=== PATIENT | male | born 1980 | race Caucasian/White ===

== ENCOUNTER 2019-11-21 01:16 | Emergency (ER) | payer OTHER, SELFPAY ==
--- NOTE | ~2019-11-21 | CT_ITS ---
EXAMINATION: CT abdomen pelvis w con DATE: 11/21/2019 02:31 INDICATION: Assess between the scrotum and rectum. TECHNIQUE: Computed tomography (CT) of the abdomen and pelvis was performed with 100 mL Omnipaque 350 intravenous contrast. Automated exposure control and iterative reconstruction technique were employe d. The dose-length product was 2514.53 mGy-cm. COMPARISON: None. FINDINGS: The visualized portions of the lung bases are clear without pneumonia or pleural effusion. The heart size is normal. No pericardial effusion. The liver, gallbladder, spleen, pancreas, adrenal glands, and left kidney are normal. There is a 2 mm stone in right kidney. There are scattered divert icula in the colon. There is mild wall thickening of the sigmoid colon. The appendix is not visualize d. There are no pathologically enlarged lymph nodes. There is no free intraperitoneal fluid. There is a 5.5 x 3.4 cm abscess in the perineum between the scrotum and anus. There is mild thoracolumbar spo ndylosis. IMPRESSION: 1. 5.5 x 3.4 cm abscess in the perineum between the scrotum and anus. 2. Mild wall thickening of the sigmoid colon, likely chronic diverticulitis. Reviewed, dictated and finalized at location A.
[2019-11-21 01:19] VITALS: BP 160/86; PULSE 101; RESP 18; TEMP 36.8; O2SAT 99
--- NOTE | 2019-11-21 01:38 | ED.SKABFB ---
HPI - Skin/Abscess/Foreign Bdy General Chief complaint: Skin/Abscess/Foreign Body Stated complaint: abscess in groin Time Seen by Provider: 11/21/19 01:31 History of Present Illness HPI narrative: Patient presents to the ED for 3 days of swelling between his rectum and his scrotum. He has previously shaved in this area but not recently. He gives the pain a 10 out of 10. He cannot sit down. He tried to drain it unsuccessfully. He has never had this before. He has not had any fever or chills. He works in IT. He does not smoke cigarettes, he rarely drinks alcohol, he does not smoke marijuana. Surgeries include appendectomy. He has not been sick recently. complaint: abscess/boil Onset (ago): day(s) Location: genitals Severity: severe Severity scale (1-10): 10 Pain Consistency: constant Relieving factors: none Exacerbating factors: palpation and other (Sitting) Context: none Associated symptoms: denies other symptoms Related Data Allergies Allergy/AdvReac Type Severity Reaction Status Date / Time aspirin Allergy Mild Unknown Verified 11/21/19 01:22 Review of Systems Review of Systems: Narrative: CONSTITUTIONAL: Denies fever, chills, or sweats. EYES: Denies visual changes, redness, or discharge. ENT: Denies rhinorrhea, congestion, sore throat, or otalgia. CARDIOVASCULAR: Denies chest pain, palpitations, or edema. RESPIRATORY: Denies cough or dyspnea. GASTROINTESTINAL: Denies abdominal pain, nausea, vomiting, or diarrhea. GENITOURINARY: Denies dysuria or hematuria. SKIN: Denies rash or itching. MUSCULOSKELETAL: Denies back pain, joint pain, or myalgia. NEUROLOGIC: Denies headache, numbness, or weakness. PSYCHIATRIC: Denies anxiety or depression. : Large swelling between the scrotum and the rectum. [facility] Past Medical History Medical History (Updated 11/21/19 @ 01:40 by Prachi Herman MD) Abscess, perirectal Surgical History Surgical History (Updated 11/21/19 @ 01:40 by Prachi Herman MD) History of appendectomy Social History Social History (Updated 11/21/19 @ 01:41 by Prachi Herman MD) Smoking status: Never smoker Alcohol intake: current Alcohol use details: Rare Exam Narrative: Exam Narrative: GENERAL: Well-appearing, well-nourished, and in no acute distress. HEAD: Normocephalic, atraumatic. EYES: PERRLA and EOMI. ENT: Nares clear, no rhinorrhea or epistaxis. Mucous membranes moist. NECK: Supple. CHEST: Clear to auscultation. No respiratory distress. HEART: Regular rate and rhythm. No murmur heard. Normal peripheral pulses. ABDOMEN: Soft, nontender, nondistended, normal active bowel sounds. EXTREMITIES: Normal range of motion. No edema. SKIN: Warm, dry, no rash. NEURO: No focal deficits. Alert and oriented x3. PSYCH: Normal mood and affect. : 4 inch x 3 inch swelling between the scrotum and the rectum, very tender. Course Vital Signs Vital signs: Vital Signs Temperature 98.2 F 11/21/19 01:19 Pulse Rate 101 H 11/21/19 01:19 Respiratory Rate 18 11/21/19 01:19 Blood Pressure 160/86 H 11/21/19 01:19 Pulse Oximetry 99 11/21/19 01:19 Temperature 98.2 F 11/21/19 01:19 Pulse Rate 101 H 11/21/19 01:19 Respiratory Rate 18 11/21/19 01:19 Blood Pressure 160/86 H 11/21/19 01:19 Pulse Oximetry 99 11/21/19 01:19 Procedures Abscess I/D serene-rectal: Date of Incision: 11/21/19 Time of Incision: 03:56 Side (if applicable): right Local Anesthetic: lidocaine 1% Amount of anesthesia used (mL): 5 Technique: incised with #15 blade and probed loculations Amount of fluid expressed (mL): 20 Irrigation: Yes Packing used?: iodoform I&D Results: Pus Complications: bleeding MDM - Skin/Abscess/Foreign Bdy Differential Diagnosis Differential diagnosis: Likely abscess of skin or subcutaneous tissue Medical Records Attestation: I reviewed the patient's medical records. Lab Data Attestation: I revie
[2019-11-21] MEDS: MORPHINE SULFATE 4 MG/ML INJ IV PUSH (01:43)
[2019-11-21] MEDS: SODIUM CHLORIDE 0.9% IV 1,000 ML 999 ML IV CONT (01:44)
[2019-11-21 01:57] LABS: Basophils Absolute Auto 0.1 K/mm3 (0.0-0.1); Basophils Percent Auto 0.3 % (0.2-1.2); Eosinophils Absolute Auto 0.2 K/mm3 (0-0.3); Eosinophils Percent Auto 1.1 % (0-4.4); Hematocrit 49.4 % (42.0-52.0); Hemoglobin 16.7 g/dL (14.0-18.0); Immature Granulocyte Absolute 0.07 K/mm3 (0.00-0.031); Immature Granulocyte Percent A 0.5 % (0-0.5); Lymphocytes Absolute Auto 2.16 K/mm3 (0.9-3.2); Lymphocytes Percent Auto 14.3 % (18.3-44.2); Mean Corpuscular HGB Conc 33.8 g/dl (32-36); Mean Corpuscular Hemoglobin 31.1 pg (26-34); Mean Platelet Volume 12.8 fl (7.4-10.4); Monocytes Absolute Auto 1.2 K/mm3 (0.1-0.6); Monocytes Percent Auto 7.6 % (2.6-8.5); Neutrophils Absolute Auto 11.5 K/mm3 (1.3-6.7); Neutrophils Percent Auto 76.2 % (45.5-73.1); Platelet Count Result 142 k/mm3 (150-375); Red Blood Count 5.37 M/mm3 (4.6-6.20); Red Cell Distribution Width 12.3 % (11.5-14.5); White Blood Count 15.1 K/mm3 (4.5-10.0)
[2019-11-21 02:05] LABS: Alanine Aminotransferase 21 U/L (4-50); Albumin Level 4.2 g/dL (3.5-5.1); Alkaline Phosphatase 123 U/L (38-126); Aspartate Amino Transferase 15 U/L (17-59); Bilirubin,Total 0.8 mg/dL (0.2-1.3); Blood Urea Nitrogen 13 mg/dL (9-20); Calcium 9.2 mg/dL (8.4-10.2); Carbon Dioxide 26 mmol/L (22-30); Chloride 98 mmol/L (98-107); Estimated CRCL calculation 174 ml/min; Estimated Glomerular Filt Rate > 60; Glucose 317 mg/dL (75-110); Potassium 3.8 mmol/L (3.4-5.0); Sodium 134 mmol/L (137-145)
[2019-11-21 02:06] LABS: Lactic Acid 1.4 mmol/L (0.7-2.1)
--- NOTE | 2019-11-21 03:59 | PC.NURSE ---
Following I & D with packing by Dr Hemran-patients periarea cleaned-4x4/sanitary pad dressing applied---patient tolerated procedure well
[2019-11-21 04:11] VITALS: BP 152/74; PULSE 76; RESP 18; O2SAT 98
== END 2019-11-21 04:14 | disposition home or self-care (01) ==
PROVIDERS: Emergency Provider Emergency Medicine
DX: K61.1 Rectal abscess (principal)
CPT/HCPCS: 36415; 46040; 74177; 80053; 83605; 85025; 87040; 96365; 96375; 99284; J2270; J2543; J7030; Q9967

== ENCOUNTER 2020-02-19 15:25 | Observation (INO) | payer OTHER, SELFPAY ==
--- NOTE | ~2020-02-19 | CT_ITS ---
EXAMINATION: CT pelvis w con DATE: 02/19/2020 16:43 INDICATION: Perineal abscess TECHNIQUE: Computed tomography (CT) of the pelvis was performed with 100 cc Omnipaque 350 intravenous contrast. Automated exposure control and iterative reconstruction technique were employed. Exam dose : 1338.02 mGy-cm total exam DLP. COMPARISON: 11/21/2019 CT abdomen pelvis FINDINGS: There is an approximately 5.6 x 7 cm peripherally enhancing thin walled abscess in the serene neum extending into the posterior lower scrotum. There are bilateral shoddy inguinal lymph nodes. There is mild colonic diverticulosis. No bowel obstruction or bowel wall thickening or pneumoperiton eum is detected. The urinary bladder is unremarkable. IMPRESSION: Perineal/scrotal abscess Reviewed, dictated and finalized at Location [facility]. Reviewed, dictated and finalized at location A. IMPRESSION: Perineal/scrotal abscess
[2020-02-19 15:40] VITALS: BP 137/93; PULSE 123; RESP 22; TEMP 36.8; O2SAT 100
--- NOTE | 2020-02-19 16:13 | ED.WOUNDLAC ---
HPI - Wound/Laceration General Chief Complaint: Wound/Laceration Stated Complaint: LEROY ABCESS Time Seen by Provider: 02/19/20 15:54 History of Present Illness HPI narrative: Patient is a 39-year-old male who presents ER with concerns of perineal abscess. Has had this previously. 3 to 4 days ago he began to have discomfort. On 02/17/2028 patient saw his urologist and was started on doxycycline for possible abscess or infection. Reports that is markedly grown in size over the last 2 days. No fevers or chills or sweats. He does have a lot of pain is worse with movement and palpation. Patient did have some bleeding drainage today. Related Data Home Medications Medication Instructions Recorded Confirmed doxycycline hyclate 100 mg PO BID 02/19/20 02/19/20 Allergies Allergy/AdvReac Type Severity Reaction Status Date / Time aspirin Allergy Mild Unknown Verified 02/19/20 16:02 Review of Systems Review of Systems: All systems reviewed & are unremarkable except as noted in HPI and below Constitutional: Constitutional: Denies chills, Denies fever(s) and Denies weakness Gastrointestinal: Gastrointestinal: Denies abdominal pain, Denies nausea and Denies vomiting Genitourinary: Genitourinary: Denies penile discharge and Denies testicular pain Comments: Swelling edema of scrotum directly adjacent perineal infection. [facility] Past Medical History Medical History (Updated 02/19/20 @ 23:28 by Costa Chavis MD) Diverticulitis Morbid obesity Obstructive sleep apnea on CPAP Perineal abscess (~11/2019) Tobacco abuse Type 2 diabetes mellitus (~02/19/20) Surgical History Surgical History History of appendectomy Family History Family History Grandparent Acute myocardial infarction Diabetes mellitus Hypertension Cerebrovascular accident Social History Social History (Updated 02/19/20 @ 23:16 by Veronique Griffith PA-C) Social History: Surrogate decision maker: Laura Montes, . Code status: Full code. Smoking packs per day: 1 Smoking cigarettes per day: 20.0 Years smoked: 19 Smoking pack-years: 19.00 Smoking status: Current every day smoker Tobacco type: cigarettes Alcohol intake: current Substance use: former Substance use type: marijuana Last use: 1 month ago Additional living arrangements comments: Lives in [place] with his and 2 children. Additional occupation/education comments: Works in IT. Gender identity (if verbalized by the patient): Male Sexual Orientation (if Verbalized by the Patient): Straight or Heterosexual Spiritual care concerns: No Exam Narrative: Exam Narrative: GENERAL: Well-appearing, morbidly obese, and in no acute distress. HEAD: Normocephalic, atraumatic. ENT: Mucous membranes moist. CHEST: Clear to auscultation. No respiratory distress. HEART: Regular rate and rhythm. Normal peripheral pulses. ABDOMEN: Soft, nontender, nondistended. : Significant scrotal edema left greater than right with fullness at the base extending into the perineum where there is a focus where dark blood has drained. EXTREMITIES: Normal range of motion. No edema. SKIN: Warm, dry, no rash. NEURO: Alert and oriented x3. Course Course Emergency Course: Admit to the hospitalist service. Discussed case with urology patient will be started on IV cefepime 2 g. Wound incised and drained. Patient should remain n.p.o. as he may require exam under anesthesia if is determined patient needs further drainage of the abscess. Will add on hgA1C. Vital Signs Vital signs: Vital Signs Temperature 98.3 F 02/19/20 15:40 Pulse Rate 123 H 02/19/20 15:40 Respiratory Rate 22 H 02/19/20 15:40 Blood Pressure 137/93 H 02/19/20 15:40 Pulse Oximetry 100 02/19/20 15:40 Temperature 98.9 F 02/19/20 20:37 Pulse Rate 108 H 02/19/20 20:37 Re
[2020-02-19] MEDS: MORPHINE SULFATE (*CRX) 4 MG/ML INJ IV PUSH (16:21)
[2020-02-19] MEDS: SODIUM CHLORIDE 0.9% IV 1,000 ML 999 ML IV CONT (16:21)
[2020-02-19 16:25] LABS: Basophils Absolute Auto 0.1 K/mm3 (0.0-0.1); Basophils Percent Auto 0.4 % (0.2-1.2); Eosinophils Absolute Auto 0.1 K/mm3 (0-0.3); Eosinophils Percent Auto 0.6 % (0-4.4); Hematocrit 51.1 % (42.0-52.0); Hemoglobin 17.4 g/dL (14.0-18.0); Immature Granulocyte Percent A 0.6 % (0-0.5); Lymphocytes Absolute Auto 1.65 K/mm3 (0.9-3.2); Lymphocytes Percent Auto 10.6 % (18.3-44.2); Mean Corpuscular HGB Conc 34.1 g/dl (32-36); Mean Corpuscular Hemoglobin 31.1 pg (26-34); Mean Corpuscular Volume 91.3 fl (80-100); Mean Platelet Volume 12.7 fl (7.4-10.4); Monocytes Absolute Auto 0.9 K/mm3 (0.1-0.6); Neutrophils Absolute Auto 12.8 K/mm3 (1.3-6.7); Neutrophils Percent Auto 81.8 % (45.5-73.1); Platelet Count Result 139 k/mm3 (150-375); Red Cell Distribution Width 13.1 % (11.5-14.5); White Blood Count 15.6 K/mm3 (4.5-10.0)
[2020-02-19 16:37] LABS: Anion Gap 12 mmol/L (8-16); Blood Urea Nitrogen 10 mg/dL (9-20); Calcium 9.4 mg/dL (8.4-10.2); Carbon Dioxide 28 mmol/L (22-30); Chloride 97 mmol/L (98-107); Estimated CRCL calculation 194 ml/min; Estimated Glomerular Filt Rate > 60; Glucose 215 mg/dL (75-110); Lactic Acid Reflex 1.3 mmol/L (0.7-2.1); Potassium 3.8 mmol/L (3.4-5.0); Sodium 137 mmol/L (137-145)
[2020-02-19 16:39] LABS: Estimated CRCL calculation 194 ml/min; Estimated Glomerular Filt Rate > 60
[2020-02-19 18:16] VITALS: BP 155/101; PULSE 98; RESP 18; TEMP 37.2; O2SAT 99
[2020-02-19 19:21] LABS: Hemoglobin A1C 11.3 % (<5.7)
[2020-02-19 19:47] VITALS: BP 130/78; PULSE 108; RESP 18; O2SAT 99
--- NOTE | 2020-02-19 20:25 | ADMGEN ---
This patient, Dell Montes, was admitted to Medical Room 340-01. Patient/family oriented to hospital policies and general routines including ID bracelet, bed and alarms, visiting hours, pain management, procedures, bathroom and other care routines, personal items, smoking policy, room service/diet, and visiting hours. Information on how to activate the Rapid Response Team has been discussed. Patient/Family are encouraged to report perceived risks to care and to ask questions if they do not understand what they are told or what they should do.
[2020-02-19 20:37] VITALS: BP 150/78; PULSE 108; RESP 18; TEMP 37.2; O2SAT 97
[2020-02-19] MEDS: SODIUM CHLORIDE 0.9% IV 1,000 ML 125 ML IV CONT (20:37)
[2020-02-19] MEDS: HYDROcodone/acetaminophen (*CRX) 5-325 MG TABLET 1 TAB PO (20:39)
[2020-02-19 22:00] VITALS: BP 152/76; PULSE 78; RESP 14; TEMP 36.7; O2SAT 98
--- NOTE | 2020-02-19 22:45 | PM.IMHP ---
H&P: HPI History of Present Illness Date/Time: 02/19/20 22:45 Chief complaint: Scrotal/perineal pain. Narrative: Dell Montes is a 39-year-old male with obstructive sleep apnea and history of perineal/scrotal abscesses who presented to the emergency department earlier this afternoon with complaints of scrotal/perineal pain. He began having discomfort in the perineal region about 4 days ago and was seen by his urologist on 02/17/2020 at which time he was prescribed doxycycline for possible abscess. Despite compliance with antibiotics the area has grown in size over the last 2 days with increasing pain, worse with movement and palpation. Today he also knows mild serosanguineous drainage from the area and is status post I&D in the emergency department. Of note, he had similar symptoms with a perineal abscess in November 2019. He denies fever, chills, sweats, nausea, vomiting, or dysuria. No history of MRSA. Review of Systems Review of Systems: Narrative: Twelve systems were reviewed with pertinent positives and negatives as per HPI. no fever, chills, or sweats. No recent cold or flu symptoms. He denies sick contacts. No exposure to those positive for COVID-19. He denies weight loss, blurry vision, polydipsia, polyuria, and neuropathy symptoms. Except as documented, all other systems were reviewed and are negative. [facility] Past Medical History Medical History (Updated 02/19/20 @ 23:16 by Veronique Griffith PA-C) Diverticulitis Morbid obesity Obstructive sleep apnea on CPAP Perineal abscess (~11/2019) Tobacco abuse Type 2 diabetes mellitus (~02/19/20) Surgical History Surgical History History of appendectomy Family History Family History Grandparent Acute myocardial infarction Diabetes mellitus Hypertension Cerebrovascular accident Social History Social History (Updated 02/19/20 @ 23:16 by Veronique Griffith PA-C) Social History: Surrogate decision maker: Laura Montes, . Code status: Full code. Smoking packs per day: 1 Smoking cigarettes per day: 20.0 Years smoked: 19 Smoking pack-years: 19.00 Smoking status: Current every day smoker Tobacco type: cigarettes Alcohol intake: current Substance use: former Substance use type: marijuana Last use: 1 month ago Additional living arrangements comments: Lives in [place] with his and 2 children. Additional occupation/education comments: Works in IT. Gender identity (if verbalized by the patient): Male Sexual Orientation (if Verbalized by the Patient): Straight or Heterosexual Spiritual care concerns: No Meds Home Medications and Allergies Home Medications Medication Instructions Recorded Confirmed Type doxycycline hyclate 100 mg PO BID 02/19/20 02/19/20 History Allergies Allergy/AdvReac Type Severity Reaction Status Date / Time aspirin Allergy Mild Unknown Verified 02/19/20 16:02 Vital Signs Vital Signs - 24 hr 02/19/20 15:40 02/19/20 18:16 02/19/20 19:47 Temperature 98.3 F 99.0 F Pulse Rate 123 H 98 108 H Respiratory Rate 22 H 18 18 Blood Pressure 137/93 H 155/101 H 130/78 Pulse Oximetry 100 99 99 02/19/20 20:37 Temperature 98.9 F Pulse Rate 108 H Respiratory Rate 18 Blood Pressure 150/78 H Pulse Oximetry 97 Exam Narrative: Exam Narrative: General: well-developed male supine distress. Weight: 35 kg. BMI: 42.7. HEENT: PERRL, EOMI. Sclerae anicteric. Oral mucosa moist. Oropharynx crowded. Neck: Supple. No lymphadenopathy. Respiratory: Lungs are clear to auscultation bilaterally. Cardiovascular: Regular rate and rhythm with S1-S2. Gastrointestinal: Abdomen is soft, obese, nontender, and nondistended with positive bowel sounds. Genitourinary: Exam deferred. According to ED physician there is significant scrotal edema, left greater than right, w
[2020-02-20] VITALS: BP 136/78; PULSE 75; RESP 16; TEMP 36.9; O2SAT 98
[2020-02-20] MEDS: INSULIN GLARGINE (*BKC) 100 UNITS/ML 20 UNITS SUB-Q (00:02)
[2020-02-20 00:06] LABS: Glucose Point of Care 267 (65-105)
[2020-02-20] MEDS: MORPHINE SULFATE (*CRX) 4 MG/ML INJ IV PUSH (00:07)
[2020-02-20 04:00] VITALS: TEMP 37
[2020-02-20] MEDS: SODIUM CHLORIDE 0.9% IV 1,000 ML 125 ML IV CONT (04:34)
[2020-02-20 05:14] VITALS: BP 127/80; PULSE 81; RESP 14; TEMP 36.7; O2SAT 99
[2020-02-20] MEDS: HYDROcodone/acetaminophen (*CRX) 5-325 MG TABLET 1 TAB PO (05:22)
[2020-02-20 06:40] LABS: Hematocrit 43.2 % (42.0-52.0); Hemoglobin 14.6 g/dL (14.0-18.0); Mean Corpuscular HGB Conc 33.8 g/dl (32-36); Mean Corpuscular Hemoglobin 31.5 pg (26-34); Mean Corpuscular Volume 93.3 fl (80-100); Platelet Count Result 147 k/mm3 (150-375); Red Blood Count 4.63 M/mm3 (4.6-6.20); Red Cell Distribution Width 13.2 % (11.5-14.5); White Blood Count 11.4 K/mm3 (4.5-10.0)
[2020-02-20 06:45] LABS: Alanine Aminotransferase 13 U/L (4-50); Albumin Level 3.4 g/dL (3.5-5.1); Alkaline Phosphatase 89 U/L (38-126); Anion Gap 8 mmol/L (8-16); Aspartate Amino Transferase 13 U/L (17-59); Bilirubin,Total 0.4 mg/dL (0.2-1.3); Blood Urea Nitrogen 10 mg/dL (9-20); Calcium 8.4 mg/dL (8.4-10.2); Carbon Dioxide 27 mmol/L (22-30); Chloride 101 mmol/L (98-107); Estimated CRCL calculation 169 ml/min; Estimated Glomerular Filt Rate > 60; Glucose 262 mg/dL (75-110); Magnesium 1.9 mg/dL (1.6-2.3); Potassium 3.8 mmol/L (3.4-5.0); Sodium 136 mmol/L (137-145)
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
[2020-02-20 07:38] LABS: Glucose Point of Care 242 (65-105)
[2020-02-20 08:00] VITALS: BP 117/64; PULSE 79; RESP 16; TEMP 36.5; O2SAT 97
[2020-02-20] MEDS: metFORMIN HCL XR 500 MG TAB.SR.24H PO (08:20)
[2020-02-20 11:36] LABS: Glucose Point of Care 183 (65-105)
--- NOTE | 2020-02-20 11:42 | PM.DS ---
DS: Admitting Diagnosis Admitting Diagnosis Admitting Diagnosis: Scrotal/perineal pain. DS: Discharge Diagnosis Discharge Diagnosis (1) Sepsis: Code(s): A41.9 - Sepsis, unspecified organism Status: Acute Assessment and Plan: Present on admission and supported by tachycardia, tachypnea, low-grade fever, and leukocytosis. Suspected source of infection is perineal abscess. He received IV antibiotics and sepsis resolved. preliminary blood cultures showed NGTD and final cultures will be monitored. (2) Perineal abscess: Code(s): L02.215 - Cutaneous abscess of perineum Status: Acute Assessment and Plan: Presented with scrotal edema and pain. Pelvis CT showed perineal/scrotal abscess. Patient has a history of scrotal abscess in November 2019 and is established with urology. He had been on doxycycline for 2 days with no improvement. He was started on IV cefepime per urology recommendations and underwent I&D by the ED physician. The abscess was packed. He was seen in consultation by urology. He was transitioned to p.o. Augmentin which he will continue for 7 days. He will follow-up with his urologist, Dr. Mireles, this week to have his wound checked, or sooner should he develop drainage, purulence, or increased edema/pain. (3) New onset type 2 diabetes mellitus: Code(s): E11.9 - Type 2 diabetes mellitus without complications Status: Acute Assessment and Plan: A1c 11.3. He reports he has never been diagnosed with diabetes before and cannot recall having his A1c checked in the past. Extensive education was provided by myself, nursing staff, and religious educator. He was started on 20 units Lantus nightly and metformin 500 mg b.i.d. He was encouraged to monitor his blood sugars 3 times per day with meals and record. He should bring this log to his PCP for review and medication adjustment as needed. He was educated on proper diet and exercise. He reports he drinks approximately 2L of soda per day and reports he plans to cut this out altogether, which should positively impact his blood sugars. (4) Elevated blood pressure reading: Code(s): R03.0 - Elevated blood-pressure reading, without diagnosis of hypertension Status: Acute Assessment and Plan: Initial blood pressure readings in the ED were elevated up to 160/86 , which may have been due to pain. Readings improved and upon my evaluation, blood pressures were well controlled. BP was 111/55 at time of discharge. (5) Obstructive sleep apnea on CPAP: Code(s): G47.33 - Obstructive sleep apnea (adult) (pediatric); Z99.89 - Dependence on other enabling machines and devices Status: Acute Assessment and Plan: He reports compliance with his CPAP. Continue CPAP nightly. (6) Tobacco abuse: Code(s): Z72.0 - Tobacco use Status: Acute Assessment and Plan: Patient reports smoking 1 pack per day. I counseled him on smoking cessation for 5 minutes. Patient reports that he is interested in quitting smoking eventually but not at this time. Risks of continued tobacco abuse were discussed. Patient verbalized understanding. DS: Summary Hospital Course Reason for hospitalization: Perineal abscess Hospital Course: date of admission: 02/19/2020 date of discharge: 02/20/2020 Dell Montes is a 39-year-old male with a history of DAVID, diverticulitis, tobacco abuse, and recent perineal abscess in November 2019 established with urology who presented to the emergency department on 02/19/2020 with complaints of scrotal discomfort ongoing about 4 days. He had been seen by his urologist on 02/17/2020 and was started on doxycycline at that time. He had been taking his antibiotics but still noticed increased edema and pain in the area. He underwent I&D in the emergency department which yielded serosanguineous discharge. At presentation, he was mildly tachycardic with additional ginger
[2020-02-20 12:00] VITALS: BP 111/55; PULSE 76; RESP 16; TEMP 36; O2SAT 97
--- NOTE | 2020-02-20 12:16 | PCNSR ---
On 02/20/20, the student, Samina Gonzalez, provided care and completed [facility] documentation on this patient. I have reviewed the student's documentation and agree with the findings.
[2020-02-20 12:25] VITALS: BMI 42.7
--- NOTE | 2020-02-20 15:15 | PC.NURSE ---
Per Cayetano,the nurse from the Urologist office, stated pt can go home with the packing and if anything changes she will call him.
== END 2020-02-20 15:05 | disposition home or self-care (01) ==
LOC: ANHED 18:49 → ANH3MED 18:54
PROVIDERS: Physician Assistant; Admitting Provider Internal Medicine; Emergency Provider Emergency Medicine; PCP Family Medicine Sports Medicine; Visit Provider Family Medicine
DX: A41.9 Sepsis, unspecified organism (principal); L02.215 Cutaneous abscess of perineum; N49.2 Inflammatory disorders of scrotum; R03.0 Elevated blood-pressure reading, without diagnosis of hypertension; E11.9 Type 2 diabetes mellitus without complications; G47.33 Obstructive sleep apnea (adult) (pediatric); E66.01 Morbid (severe) obesity due to excess calories; Z68.41 Body mass index [BMI] 40.0-44.9, adult; Z99.89 Dependence on other enabling machines and devices; F17.210 Nicotine dependence, cigarettes, uncomplicated
CPT/HCPCS: 36415; 55100; 72193; 80048; 80053; 83036; 83605; 83735; 85025; 85027; 87040; 96361; 96365; 96375; 99285; A9270; G0378; J0692; J1815; J2270; J7030; Q9967

== ENCOUNTER 2020-07-19 14:00 | Outpatient (RCR) | payer OTHER, SELFPAY ==
[2020-07-19 14:10] VITALS: BMI 80.6
[2020-07-19 14:13] VITALS: BMI 80.6
== END 2020-10-08 14:22 | disposition home or self-care (01) ==
LOC: ANHDMC 14:00
PROVIDERS: PCP Internal Medicine; Visit Provider Internal Medicine
DX: E11.65 Type 2 diabetes mellitus with hyperglycemia (principal); Z71.3 Dietary counseling and surveillance; Z71.89 Other specified counseling
CPT/HCPCS: 97802; G0108

== ENCOUNTER 2021-05-07 12:39 | Outpatient (RCR) | payer OTHER, SELFPAY ==
[2021-05-07] MEDS: ACETAMINOPHEN 325 MG TABLET 650 MG PO (15:28)
[2021-05-07] MEDS: FAMOTIDINE 20 MG TABLET PO (15:28)
[2021-05-07] MEDS: diphenhydrAMINE HCl CAP 25 MG CAPSULE PO (15:28)
[2021-05-07 15:34] VITALS: BP 146/88; PULSE 74; RESP 20; TEMP 36.2; O2SAT 100
[2021-05-07 16:30] VITALS: BP 124/82
== END 2021-05-07 17:00 ==
LOC: AMCINF 12:39
PROVIDERS: PCP Internal Medicine; Referring Provider Internal Medicine; Visit Provider Internal Medicine Hematology & Oncology
DX: U07.1 COVID-19 (principal); I10 Essential (primary) hypertension
CPT/HCPCS: A9270; M0243; Q0244

== ENCOUNTER 2021-08-08 15:30 | Outpatient (RCR) | payer OTHER, SELFPAY ==
--- NOTE | 2021-07-19 16:44 | PTOPEVAL ---
Thank you for referring Dell Montes to [facility].? The patient is scheduled to be seen for therapy? 2 x/week for 4 weeks. Please review, sign, date and return this plan of care JOSÉ ANTONIO. I agree with and certify that the following plan of care is medically necessary. Referring Physician Date Attending Provider: Sacha Quinones APN Diagnosis right elbow pain Onset years Subjective Information He started boweling 4 yrs ago Query Text:As Reported By Patient/ with increased pain regardless Family of weight of ball. He only has pain with end range ext or with bowling. Denies problems with household chore, yard work, work activities at his desk or computer. He wears a compression band and sleeve, ice and topical cream without relief. Diagnostic Tests X-Rays For This Problem Yes Pain Assessment Right Elbow(s) Reported Pain Level 0 Pain Frequency Chronic,Intermittent Lowest Pain Intensity 0 Greatest Pain Intensity 6 Upper Extremity Range of Motion Elbow/Forearm Range of Motion Right Elbow Extension - Active -5 Upper Extremity Muscle Strength Testing General Upper Extremity Strength Gross Upper Extremity Strength Comments 5/5 elbow and wrist pain with wrist flex Muscle Length Testing Muscle Length Testing Latissmus Dorsi Muscle Length (R) Severe Tightness,(L) Severe Tightness Pectoralis Major Muscle Length (R) Mild Tightness,(L) Mild Tightness Pectoralis Minor Muscle Length (R) Severe Tightness,(L) Severe Tightness Posture Standing Position Head/C-Spine Posture Forward Head Thoracic Spine Posture Increased Kyphosis Shoulder Posture (L) Rounded,(R) Rounded,(L) Forward,(R) Forward Scapula Posture (L) Protracted,(R) Protracted, (L) Elevated,(R) Elevated Arm Posture (L) Internally Rotated,(R) Internally Rotated Palpation Assessment Palpation tenderness of ulnar groove for ulnar nerve mild tenderness of distal attachment of tricep muscle Special Tests-Upper Extremity Shoulder Special Tests Upper Limb Tension Test: Radial Negative Right Upper Limb Tension Test:Median Negative Right Upper Limb Tension Test:Ulnar Negative Right Elbow Special Tests Elbow Valgus Stress Test at 0 Degrees Negative Right Extension
--- NOTE | 2021-08-08 16:15 | PCPTNOTE ---
Admitting Provider: Attending Provider: Sacha Quinones APN Patient:Dell Montes Date of :1980 Physical Therapy Discharge Note. Pt referred to therapy due to chronic right elbow pain. He has attended 7 therapy visits from 07/19/21 to 08/08/21 to address his UE impairments. As result of skilled therapy services he reports improved UE symptoms and limitations with bowling. He has been provided a HEP and demonstrates compliance and understanding for performing . He has reached maximal potential with skilled therapy services at this time with goals achieved. Will DC skilled therapy services at this time. Quick Dash: 11% impaired at eval and 0% impaired at update. Thank you for referring this patient to [facility]. Please review, sign, date and return this discharge summary JOSÉ ANTONIO. I have been updated about the patient's current status and I agree with discharge from the above service at this time. Referring Physician Date
== END 2021-10-07 09:29 | disposition home or self-care (01) ==
LOC: ANHPT 15:30
PROVIDERS: PCP Internal Medicine; Visit Provider Nurse Practitioner
DX: M25.521 Pain in right elbow (principal)
CPT/HCPCS: 97035; 97110; 97112; 97140; 97161; 97530

== ENCOUNTER 2021-09-13 05:58 | Emergency (ER) | payer OTHER, SELFPAY ==
--- NOTE | ~2021-09-13 | CT_ITS ---
EXAMINATION: CT abdomen pelvis wo con DATE: 09/13/2021 07:15 INDICATION: Right flank pain TECHNIQUE: Computed tomography (CT) of the abdomen and pelvis was performed without intravenous contr ast. The dose-length product (DLP) was 1326.51 mGy-cm. Automated exposure control and iterative recon struction technique were employed. COMPARISON: 11/21/2019 FINDINGS: Minimal dependent atelectasis is present in the lung bases. The heart size is normal. Bilat eral gynecomastia is noted. The liver, spleen, pancreas, gallbladder, and adrenal glands are normal. There is a 4 mm stone at the right ureterovesicular junction which causes mild right hydroureteroneph rosis. There is enlargement of the right kidney with adjacent fat stranding. The left kidney is unrem arkable. No pathologically enlarged abdominal or pelvic lymph nodes are identified. There is no free intraperitoneal gas or evidence of bowel obstruction. There is mild circumferential wall thickening o f the urinary bladder. Colonic diverticulosis is present without evidence of diverticulitis. IMPRESSION: 1. 4 mm stone at the right ureterovesicular junction causing mild right hydroureteronephrosis. Enlarg ement of the right kidney with surrounding fat stranding could reflect superimposed pyelonephritis. Reviewed, dictated and finalized at location A. IMPRESSION: 1. 4 mm stone at the right ureterovesicular junction causing mild right hydrour eteronephrosis. Enlargement of the right kidney with surrounding fat stranding could reflect superimposed pyelonephritis.
[2021-09-13 05:59] VITALS: BP 147/86; PULSE 73; RESP 18; TEMP 36.6; O2SAT 100
[2021-09-13] MEDS: ONDANSETRON HCL ODT 4 MG TABLET PO (06:48)
[2021-09-13] MEDS: KETOROLAC 30 MG/ML VIAL (*BKC) IM (06:48)
--- NOTE | 2021-09-13 06:51 | ED.BACK ---
HPI - Back Pain/Injury General Chief Complaint: Back Pain/Injury <Sujata Montes MD - Last Filed: 09/13/21 07:35> Stated Complaint: right flank pain <Sujata Montse MD - Last Filed: 09/13/21 07:35> Time Seen by Provider: 09/13/21 06:04 <Sujata Montes MD - Last Filed: 09/13/21 07:35> History of Present Illness HPI Narrative: 40-year-old male woke up from sleep with severe right flank pain that feels like spasms, seems to radiate to the front, with some urinary frequency/dysuria, and nausea. No fevers or chills, no concern for STDs. <Sujata Montes MD - Last Filed: 09/13/21 07:35> Related Data Allergies/Adverse Reactions: Allergies Allergy/AdvReac Type Severity Reaction Status Date / Time aspirin Allergy Mild Vomiting Verified 09/13/21 06:00 <Sujata Montes MD - Last Filed: 09/13/21 07:35> Review of Systems Review of Systems: All systems reviewed & are unremarkable except as noted in HPI and below <Sujata Montes MD - Last Filed: 09/13/21 07:35> PMFSH Past Medical History Medical History: Medical History Diverticulitis Morbid obesity Obstructive sleep apnea on CPAP Perineal abscess (~11/2019) Tobacco abuse Type 2 diabetes mellitus (~02/19/20) <Sujata Montes MD - Last Filed: 09/13/21 07:35> Surgical History Surgical History: Surgical History History of appendectomy <Sujata Montes MD - Last Filed: 09/13/21 07:35> Family History Family History: Family History Grandparent Acute myocardial infarction Diabetes mellitus Hypertension Cerebrovascular accident <Sujata Montes MD - Last Filed: 09/13/21 07:35> Social History Social History: Social History Social History: Surrogate decision maker: Laura Montes, . Code status: Full code. Smoking packs per day: 1 Smoking cigarettes per day: 20.0 Years smoked: 19 Smoking pack-years: 19.00 Tobacco type: cigarettes Alcohol intake: current Alcohol use details: Rare Substance use: former Substance use type: marijuana Last use: 1 month ago Additional living arrangements comments: Lives in [place] with his and 2 children. Additional occupation/education comments: Works in IT. Gender identity (if verbalized by the patient): Male Sexual Orientation (if Verbalized by the Patient): Straight or Heterosexual Spiritual care concerns: No <Sujata Montes MD - Last Filed: 09/13/21 07:35> Exam Narrative: EXAMINATION OF ORGAN SYSTEMS/BODY AREAS: Constitutional: Vital signs per nursing GENERAL: Appears uncomfortable in bed HEAD: Normal with no signs of head trauma. EYES: EOMI, conjunctiva normal ENT: Hearing grossly intact LUNGS: Nonlabored breathing. HEART: [Regular rate and rhythm] ABD: [Soft], no CVAT or abdominal tenderness EXT: Normal range of motion SKIN: [No rashes or lesions.] NEURO: [Alert and oriented x 3. No gross focal sensory or strength deficits.] PSYCH: Normal affect <Sujata Montes MD - Last Filed: 09/13/21 07:35> Course Course Emergency Course: 40-year-old male presenting with right flank pain with nausea, sudden onset with dysuria, vital signs stable, exam shows uncomfortable appearing patient with soft and nontender abdomen and no CVA tenderness, differential includes kidney stones, pyelonephritis, muscle spasm, very unlikely dissection without neuro deficits or risk factors. UA obtained and CT non-con, signed out to oncoming ER physician Dr. Chavis. <Sujata Montes MD - Last Filed: 09/13/21 07:35> Reevaluation(s) Reevaluation #1: Urine with very few white cells and leukocyte Estrace. Will send for culture and start on cephalexin given stranding around the kidney but patient has no CVA tenderness and is afebrile. Stranding felt to be related to hydrouret
[2021-09-13 07:07] LABS: Appearance Urine Clear (Clear); Bilirubin Urine Negative (Negative); Blood Urine 1+ (Negative); Color Urine Yellow (Yellow); Glucose Urine UA Negative (Negative); Ketones Urine Negative (Negative); Leukocyte Esterase Ur 1+ LEU/UL (Negative); Nitrate Urine Negative (Negative); Protein Urine Negative (Negative); Urobilinogen Urine 0.2 mg/dL (<2.0)
[2021-09-13 07:23] LABS: Add Urine Microscopic? YES
[2021-09-13 07:26] LABS: Bacteria Urine Trace /hpf; Mucus Urine Rare /lpf; RBC Urine 21-50 /hpf (0-2); Squamous Epithelial Cell Urine Rare /hpf (Few)
[2021-09-13 07:53] VITALS: BP 158/89; PULSE 73; RESP 18; O2SAT 97
[2021-09-13] MEDS: CEPHALEXIN 500 MG CAPSULE PO (08:55)
[2021-09-13 08:57] VITALS: BP 162/72; PULSE 80; RESP 16; O2SAT 97
== END 2021-09-13 08:59 | disposition home or self-care (01) ==
PROVIDERS: Emergency Medicine; Emergency Provider Emergency Medicine; PCP Internal Medicine
DX: N13.2 Hydronephrosis with renal and ureteral calculous obstruction (principal); E66.01 Morbid (severe) obesity due to excess calories; Z68.35 Body mass index [BMI] 35.0-35.9, adult; G47.33 Obstructive sleep apnea (adult) (pediatric); E11.9 Type 2 diabetes mellitus without complications; F17.210 Nicotine dependence, cigarettes, uncomplicated; Z79.84 Long term (current) use of oral hypoglycemic drugs
CPT/HCPCS: 74176; 81001; 87077; 87086; 87186; 96372; 99284; A9270; J1885

== ENCOUNTER 2021-09-30 16:29 | Emergency (ER) | payer OTHER, SELFPAY ==
[2021-09-30 16:38] VITALS: BP 151/85; PULSE 96; RESP 18; TEMP 37; O2SAT 100
--- NOTE | 2021-09-30 16:46 | ED.URI ---
HPI - URI/Sore Throat General Chief Complaint: Upper Respiratory Infection Stated Complaint: sorethroat,rt ear pain Time Seen by Provider: 09/30/21 16:46 Source: patient Mode of arrival: ambulatory Limitations: no limitations History of Present Illness HPI Narrative: 40-year-old male presents with complaint of sore throat, chills, body aches, fever, fatigue since last night. Reports he just got home from a vacation to [place]. States that radiates to right ear. Is taking Tylenol and ibuprofen. All systems reviewed and negative except as noted above. Related Data Allergies Allergy/AdvReac Type Severity Reaction Status Date / Time aspirin Allergy Mild Vomiting Verified 09/30/21 16:31 Review of Systems Review of Systems: CONSTITUTIONAL: Reports fever, chills, or sweats. EYES: Denies visual changes, redness, or discharge. ENT: Denies rhinorrhea, congestion. Reports sore throat and right ear pain CARDIOVASCULAR: Denies chest pain, palpitations, or edema. RESPIRATORY: Denies cough or dyspnea. GASTROINTESTINAL: Denies abdominal pain, nausea, vomiting, or diarrhea. GENITOURINARY: Denies dysuria or hematuria. SKIN: Denies rash or itching. MUSCULOSKELETAL: Denies back pain, joint pain, or myalgia. NEUROLOGIC: Denies headache, numbness, or weakness. PSYCHIATRIC: Denies anxiety or depression. All other systems reviewed are negative, except as documented in HPI. [facility] Past Medical History Medical History Diverticulitis Morbid obesity Obstructive sleep apnea on CPAP Perineal abscess (~11/2019) Tobacco abuse Type 2 diabetes mellitus (~02/19/20) Surgical History Surgical History History of appendectomy Family History Family History Grandparent Acute myocardial infarction Diabetes mellitus Hypertension Cerebrovascular accident Social History Social History Social History: Surrogate decision maker: Laura Montes, . Code status: Full code. Smoking packs per day: 1 Smoking cigarettes per day: 20.0 Years smoked: 19 Smoking pack-years: 19.00 Tobacco type: cigarettes Alcohol intake: current Alcohol use details: Rare Substance use: former Substance use type: marijuana Last use: 1 month ago Additional living arrangements comments: Lives in [place] with his and 2 children. Additional occupation/education comments: Works in IT. Gender identity (if verbalized by the patient): Male Sexual Orientation (if Verbalized by the Patient): Straight or Heterosexual Spiritual care concerns: No Comments At time of signature, agree with nursing past medical, surgical, social and family history. There is no relevant family history pertinent to the presenting complaint. Exam Narrative: GENERAL: This is a well-nourished, well-developed patient, in no apparent distress. HEAD: normocephalic, atraumatic. EYES: PERRL. Sclera clear/white. Vision is grossly intact. EARS: External ears normal, auditory canals clear and without drainage, TMs normal without perforation. Hearing grossly intact. NOSE: External nose normal with no obvious nasal discharge, nares without redness, no rhinorrhea. THROAT: Mucous membranes moist, erythema and swelling to posterior pharynx, tonsils 1+ with erythema and exudates. NECK: Neck supple, tender enlarged cervical lymphadenopathy. CARDIOVASCULAR: Regular rate and rhythm without murmurs, gallops, or rubs. RESPIRATORY: Clear to auscultation. Breath sounds equal bilaterally. No wheezes, rales, or rhonchi. SKIN: warm, Dry, intact with no suspicious lesions or rash, good texture and turgor. NEURO: awake, alert, and oriented to person, place and time. There were no obvious focal neurologic abnormalities. EXTREMITIES: Normal range of motion to all extremities. [facility]
== END 2021-09-30 17:07 | disposition home or self-care (01) ==
PROVIDERS: Emergency Provider Nurse Practitioner Family; PCP Internal Medicine
DX: J02.9 Acute pharyngitis, unspecified (principal); Z20.822 Contact with and (suspected) exposure to COVID-19; Z87.891 Personal history of nicotine dependence; G47.33 Obstructive sleep apnea (adult) (pediatric); E11.9 Type 2 diabetes mellitus without complications; E66.01 Morbid (severe) obesity due to excess calories; Z68.34 Body mass index [BMI] 34.0-34.9, adult
CPT/HCPCS: 87081; 87426; 87804; 87880; 99213; C9803; G0463

== ENCOUNTER 2021-10-29 14:50 | Emergency (ER) | payer OTHER, SELFPAY ==
[2021-10-29 14:59] VITALS: BP 159/84; PULSE 98; RESP 18; TEMP 38.2; O2SAT 99
--- NOTE | 2021-10-29 15:03 | ED.URI ---
HPI - URI/Sore Throat General Chief Complaint: Upper Respiratory Infection Stated Complaint: Lt Ear Irritation,Sinus,Sore Throat Time Seen by Provider: 10/29/21 15:03 Source: patient, RN notes reviewed and old records reviewed Mode of arrival: ambulatory Limitations: no limitations History of Present Illness HPI Narrative: 40 year old male presents to [facility] care with complaints of sore throat, sinus congestion and left ear irritation for since Thursday evening. Patient reports that his left ear is painful and feels swollen. He reports that he has had sinus congestion with sore throat and some nausea with no emesis. Patient reports that he has taken Motrin, Tylenol and used Apple Cigar vinegar and water. Patient reports that he was treated at clinic one month ago for pharyngitis and ear pain with sinus congestion and felt better for about one week after completing antibiotic, his PCP also ordered him an antibiotic on the which he finished and now symptoms are back again. MD elicited complaint: fever, sore throat, rhinorrhea, nasal congestion and other (ear pain) Pain scale (0-10): 7 Exacerbating factors: swallowing Related Data Home Medications Medication Instructions Recorded Confirmed metformin 1,000 mg tablet 1,000 mg PO BID 10/29/21 Allergies Allergy/AdvReac Type Severity Reaction Status Date / Time aspirin AdvReac Mild Vomiting Verified 10/29/21 15:10 Review of Systems Review of Systems: CONSTITUTIONAL: Positive for fever, chills, or sweats. EYES: Denies visual changes, redness, or discharge. ENT: Positive for rhinorrhea, congestion, sore throat, left otalgia. CARDIOVASCULAR: Denies chest pain, palpitations, or edema. RESPIRATORY: Denies cough or dyspnea. GASTROINTESTINAL: Denies abdominal pain, nausea, vomiting, or diarrhea. GENITOURINARY: Denies dysuria or hematuria. SKIN: Denies rash or itching. MUSCULOSKELETAL: Denies back pain, joint pain, or myalgia. NEUROLOGIC: Denies headache, numbness, or weakness. PSYCHIATRIC: Denies anxiety or depression. [facility] Past Medical History Medical History (Updated 10/29/21 @ 15:41 by Ida Marie NP) Diverticulitis Obesity Obstructive sleep apnea on CPAP Perineal abscess (~11/2019) Tobacco abuse Type 2 diabetes mellitus (~02/19/20) Surgical History Surgical History History of appendectomy Family History Family History Grandparent Acute myocardial infarction Diabetes mellitus Hypertension Cerebrovascular accident Social History Social History Social History: Surrogate decision maker: Laura Montes, . Code status: Full code. Smoking packs per day: 1 Smoking cigarettes per day: 20.0 Years smoked: 19 Smoking pack-years: 19.00 Tobacco type: cigarettes Alcohol intake: current Alcohol use details: Rare Substance use: former Substance use type: marijuana Last use: 1 month ago Additional living arrangements comments: Lives in [place] with his and 2 children. Additional occupation/education comments: Works in IT. Gender identity (if verbalized by the patient): Male Sexual Orientation (if Verbalized by the Patient): Straight or Heterosexual Spiritual care concerns: No Comments At time of signature, agree with nursing past medical, surgical, social and family history. There is no relevant family history pertinent to the presenting complaint Exam Narrative: GENERAL:Ill-appearing, well-nourished, and in no acute distress. HEAD: Normocephalic, atraumatic. EYES: PERRLA and EOMI. ENT: Nares with inflamed membranes clear nasal rhinorrhea no epistaxis. Mucous membranes moist.TMnormal on right with good light reflex, Left TM red and bulging with no drainage, throat red, no lesions or exudates, tonsils red and swollen. NECK: Supple.lymphadenopathy CHEST:
== END 2021-10-29 15:32 | disposition home or self-care (01) ==
PROVIDERS: Emergency Provider Registered Nurse; PCP Internal Medicine
DX: J02.0 Streptococcal pharyngitis (principal); H66.92 Otitis media, unspecified, left ear; F17.210 Nicotine dependence, cigarettes, uncomplicated; G47.33 Obstructive sleep apnea (adult) (pediatric); E11.9 Type 2 diabetes mellitus without complications; E66.9 Obesity, unspecified; Z68.34 Body mass index [BMI] 34.0-34.9, adult; Z79.84 Long term (current) use of oral hypoglycemic drugs
CPT/HCPCS: 87880; 99213; G0463

== ENCOUNTER 2022-08-23 08:19 | Emergency (ER) | payer OTHER, SELFPAY ==
--- NOTE | 2022-08-23 08:27 | ED.GENADULT ---
HPI - General Adult General Chief complaint: Ear Stated complaint: Rt Ear Irritation Time Seen by Provider: 08/23/22 08:27 Source: patient Mode of arrival: ambulatory Limitations: no limitations History of Present Illness HPI narrative: 41-year-old male patient presents to the [facility] with complaints of right ear pain that started . Patient states he woke up with an earache that morning but is become progressively worse. Patient denies any fevers, body aches or chills. Denies any sneezing, the runny nose or watery eyes. Patient states he does take Zyrtec daily. Related Data Allergies Allergy/AdvReac Type Severity Reaction Status Date / Time aspirin AdvReac Intermediate Vomiting Verified 08/23/22 08:30 Review of Systems Review of Systems: CONSTITUTIONAL: Denies fever, chills, or sweats. EYES: Denies visual changes, redness, or discharge. ENT: Denies rhinorrhea, congestion, sore throat, Positive right otalgia. CARDIOVASCULAR: Denies chest pain, palpitations, or edema. RESPIRATORY: Denies cough or dyspnea. GASTROINTESTINAL: Denies abdominal pain, nausea, vomiting, or diarrhea. GENITOURINARY: Denies dysuria or hematuria. SKIN: Denies rash or itching. MUSCULOSKELETAL: Denies back pain, joint pain, or myalgia. NEUROLOGIC: Denies headache, numbness, or weakness. PSYCHIATRIC: Denies anxiety or depression. [facility] Past Medical History Medical History Diverticulitis Obesity Obstructive sleep apnea on CPAP Perineal abscess (~11/2019) Tobacco abuse Type 2 diabetes mellitus (~02/19/20) Surgical History Surgical History History of appendectomy Family History Family History Grandparent Acute myocardial infarction Diabetes mellitus Hypertension Cerebrovascular accident Social History Social History Social History: Surrogate decision maker: Laura Montes, . Code status: Full code. Smoking packs per day: 1 Smoking cigarettes per day: 20.0 Years smoked: 20 Smoking pack-years: 20.00 Smoking status: Current every day smoker Tobacco type: cigarettes Second hand tobacco smoke exposure: Yes Alcohol intake: current Alcohol use details: Rare Substance use: former Substance use type: marijuana Last use: 1 month ago Additional living arrangements comments: Lives in [place] with his and 2 children. Additional occupation/education comments: Works in IT. Gender identity (if verbalized by the patient): Male Sexual Orientation (if Verbalized by the Patient): Straight or Heterosexual Spiritual care concerns: No Comments At the time of my signature I agree with nursing past medical history, surgical, social, and family history. There is no relevant family history pertinent to the presenting complaint. Exam Narrative: GENERAL: Well-appearing, well-nourished, and in no acute distress. HEAD: Normocephalic, atraumatic. EYES: PERRLA and EOMI. ENT: Nares clear, no rhinorrhea or epistaxis. Mucous membranes moist. posterior pharynx no erythema, tonsillar enlargement, exudates or lesions present. The right ear canal is swollen with some yellow drainage present. No infection noted behind the eardrum at this time. NECK: Supple. No lymphadenopathy CHEST: Clear to auscultation. No respiratory distress. HEART: Regular rate and rhythm. No murmur heard. Normal peripheral pulses. ABDOMEN: Soft, nontender, nondistended, normal active bowel sounds. EXTREMITIES: Normal range of motion. No edema. SKIN: Warm, dry, no rash. NEURO: No focal deficits. Alert and oriented x3. Course Course Level of Care: Express Care Visit Vital Signs Vital signs: Vital Signs Temperature 36.6 C 08/23/22 08:37 Pulse Rate 73 08/23/22 08:37 Respiratory Rate 18 08/23/22 08:37 Bl
[2022-08-23 08:37] VITALS: BP 146/86; PULSE 73; RESP 18; TEMP 36.6; O2SAT 100
== END 2022-08-23 08:51 | disposition home or self-care (01) ==
PROVIDERS: Emergency Provider Nurse Practitioner Family; PCP Family Medicine
DX: H60.91 Unspecified otitis externa, right ear (principal); F17.210 Nicotine dependence, cigarettes, uncomplicated; G47.30 Sleep apnea, unspecified; E11.9 Type 2 diabetes mellitus without complications; E66.9 Obesity, unspecified; Z68.35 Body mass index [BMI] 35.0-35.9, adult
CPT/HCPCS: 99213; G0463

== ENCOUNTER 2023-03-13 15:59 | Observation (INO) | payer OTHER, SELFPAY ==
[2023-03-13] VITALS (8 sets, daily range): BP systolic 127–178; BP diastolic 83–106; PULSE 60–75; RESP 14–20; TEMP 36.4–36.6; O2SAT 95–98
--- NOTE | ~2023-03-13 | CT_ITS ---
EXAMINATION: CT brain wo con DATE: 03/13/2023 16:21 INDICATION: Slurred speech. Left arm and leg numbness. TECHNIQUE: Computed tomography (CT) of the head was performed without intravenous contrast. The mA wa s adjusted according to patient size. Iterative reconstruction technique was employed. The dose-lengt h product was 681.00 mGy-cm. COMPARISON: None FINDINGS: There is a 10 mm cyst in the left frontal lobe deep white matter. There is no intracranial hemorrhage, acute infarction, or abnormal intracranial mass lesion. The ventricles are normal in size . There is mild mucosal thickening in the paranasal sinuses. The mastoid air cells are normal. IMPRESSION: 1. 10 mm cyst in the left frontal lobe deep white matter, which may be chronic cystic encephalomalaci a or a prominent perivascular space. I called this result to Dr. Betancur. Reviewed, dictated and finalized at location E. ON FANCIER IMPRESSION: 1. 10 mm cyst in the left frontal lobe deep white matter, which may be chronic cystic encephalomalacia or a prominent perivascular space. I called this result to Dr. Betancur.
--- NOTE | ~2023-03-13 | XR_ITS ---
EXAMINATION: XR chest 1V portable DATE: 03/13/2023 16:31 INDICATION: Left-sided pain and numbness. TECHNIQUE: A single frontal view of the chest was obtained on 2 radiographs. COMPARISON: CT abdomen and pelvis 09/13/2021 FINDINGS: There is no pneumonia, pleural effusion, or pneumothorax. The heart size is normal. IMPRESSION: 1. No acute cardiopulmonary disease. Reviewed, dictated and finalized at location E. GLE SHEARING MACHINE OPERATOR
--- NOTE | ~2023-03-13 | CT_ITS ---
EXAMINATION: CTA brain carotid DATE: 03/13/2023 16:32 INDICATION: Slurred speech. Left arm and leg numbness. TECHNIQUE: Computed tomographic angiography (CTA) of the head was performed with 100 mL Omnipaque-350 intravenous contrast. CTA of the neck was performed with intravenous contrast. Automated exposure co ntrol and iterative reconstruction technique were employed. The dose-length product was 1274.76 mGy-c m. Maximum intensity projection and volume rendered 3D-reconstructions were created by the technologi st on a separate workstation. COMPARISON: Head CT 03/13/2023 FINDINGS: HEAD CTA: There is a cyst in the left frontal lobe ponce radiata. There is no intracranial hemorrhag e, acute infarction, or abnormal intracranial mass lesion. The ventricles are normal in size. The orb its are normal. There is mild mucosal thickening in the paranasal sinuses. The mastoid air cells are normal. The vertebral arteries are codominant. There is no significant stenosis of basilar artery or the posterior cerebral arteries. There is no significant stenosis of the intracranial internal caroti d arteries or anterior or middle cerebral arteries. Anterior communicating artery is normal. The post erior communicating arteries are normal. There is no aneurysm. NECK CTA: There are no pathologically enlarged lymph nodes. There is no significant stenosis of the v ertebral arteries. There is mild plaque in proximal right internal carotid artery. There is 0% stenos is of the proximal right internal carotid artery relative to normal distal artery lumen diameter (FAWN CET criteria). There is 0% stenosis of the proximal left internal carotid artery relative to normal d istal artery lumen diameter. There is mild cervical spondylosis. IMPRESSION: 1. Cyst in the left frontal lobe deep white matter, which may be chronic cystic encephalomalacia or a prominent perivascular space. 2. No aneurysm or significant intracranial arterial stenosis. 3. 0% stenosis of the proximal internal carotid arteries relative to normal distal artery lumen diame ters (NASCET criteria). Reviewed, dictated and finalized at location E. NSTITCH BINDER IMPRESSION: 1. Cyst in the left frontal lobe deep white matter, which may be chronic cystic encephalomalacia or a prominent perivascular space. 2. No aneurysm or significant intracranial arterial stenosis. 3. 0% stenosis of the proximal internal carotid arteries relative to normal dis hipolito artery lumen diameters (NASCET criteria).
--- NOTE | ~2023-03-13 | MR_ITS ---
EXAMINATION: MR brain/brain stem wo/w con DATE: 03/14/2023 15:06 INDICATION: Transient episode of left hemiparesis. TECHNIQUE: Magnetic resonance imaging (MRI) of the brain and brainstem was performed without and with 20 mL MultiHance intravenous contrast. COMPARISON: Head CT 03/13/2023 FINDINGS: There is an old infarct in the left frontal lobe ponce radiata. There are scattered areas of low attenuation in the cerebral white matter, which is within normal limits for the patient's age. There is no intracranial hemorrhage, acute infarction, or abnormal intracranial mass lesion. The ve ntricles are normal in size. The paranasal sinuses are clear. The mastoid air cells are normal. The o rbits are normal. IMPRESSION: 1. Old infarct in the left frontal lobe ponce radiata. Reviewed, dictated and finalized at location E. OGICAL AIDE
--- NOTE | 2023-03-13 16:11 | ECG_ITS ---
Measurements Intervals [place] Rate: 63 P: 26 DC: 147 QRS: 42 QRSD: 94 T: 41 QT: 386 QTc: 397 Interpretive Statements SINUS RHYTHM LOW QRS VOLTAGE IN PRECORDIAL LEADS BASELINE WANDER- V1 BORDERLINE ECG NO PREVIOUS ECG AVAILABLE FOR COMPARISON Electronically Signed On 03-13-2023 19:20:25 COMMERCIAL SALES DIRECTOR by Sathya Sung D.O.
--- NOTE | 2023-03-13 16:16 | ED.NEUROSD ---
HPI - Neuro Symptoms/Deficit General Chief Complaint: Neuro Symptoms/Deficit Stated Complaint: numbness tingling Time Seen by Provider: 03/13/23 16:12 History of Present Illness HPI Narrative: Patient is a 42-year-old male presenting as a stroke alert. Patient states that approximately 30 minutes ago he felt the left side of his body go numb and his thought that his speech sounded slurred. He was brought in for evaluation and states that his left arm and leg still feel somewhat numb but his speech is improved. No focal weakness, vision changes, headache. Related Data Allergies Allergy/AdvReac Type Severity Reaction Status Date / Time No Known Allergies Allergy Verified 03/15/23 11:26 Review of Systems Review of Systems: ROS unobtainable: Yes unobtainable due to medical condition and other (Acuity of the situation) [facility] Past Medical History Medical History (Updated 03/15/23 @ 15:59 by Deepika Betancur MD) Cryptogenic stroke Diet-controlled type 2 diabetes mellitus (02/2020) Diverticulitis Obstructive sleep apnea on CPAP Perineal abscess (11/2019) PFO (patent foramen ovale) Tobacco abuse Surgical History Surgical History History of appendectomy Family History Family History Grandparent Acute myocardial infarction Diabetes mellitus Hypertension Cerebrovascular accident Social History Social History (Updated 03/13/23 @ 22:29 by Veronique Griffith PA-C) Social History: Surrogate decision maker: Laura Montes, . Code status: Full code. Smoking packs per day: 0.25 Smoking cigarettes per day: 5.0 Years smoked: 20 Smoking pack-years: 5.00 Smoking status: Current every day smoker Tobacco type: cigarettes Second hand tobacco smoke exposure: Yes Alcohol intake: current Drinks per week: 1 Alcohol use details: Rare Substance use: current Substance use type: marijuana Last use: 03/12/2023 Lack of Transportation: No Lack of Food: Never True Current Housing: I Have Housing Concerned About Future Housing: No Difficulty Paying Gas/Electric Bills: No Difficulty Paying for Meds: No Currently Unemployed: No Education: Bachelor's Degree Difficulty w/ Childcare or Family Care: No Additional living arrangements comments: Lives in [place] with his and 2 children. Additional occupation/education comments: Works in IT. Spiritual care concerns: No Exam Narrative: GENERAL: Nontoxic, no acute distress HEAD: Normocephalic, atraumatic. EYES: PERRLA and EOMI. ENT: Grossly unremarkable NECK: Supple. CHEST: Clear to auscultation. No respiratory distress. HEART: Regular rate and rhythm ABDOMEN: Soft, nondistended EXTREMITIES: Normal range of motion. No edema. SKIN: Warm, dry, no rash. NEURO: Alert and oriented x3. 5 out of 5 strength in all extremities, reports subjective sensory loss in the left arm and left leg, no facial droop, no dysarthria or aphasia PSYCH: Normal mood and affect. Course Vital Signs Vital signs: Vital Signs Temperature 97.6 F 03/13/23 16:03 Pulse Rate 75 03/13/23 16:03 Respiratory Rate 16 03/13/23 16:03 Blood Pressure 178/106 H 03/13/23 16:03 Pulse Oximetry 96 03/13/23 16:03 Oxygen Delivery Room Air 03/13/23 16:03 Temperature 97.9 F 03/15/23 04:41 Pulse Rate 63 03/15/23 12:00 Respiratory Rate 12 03/15/23 04:41 Blood Pressure 118/70 03/15/23 04:41 Pulse Oximetry 97 03/15/23 04:41 Oxygen Delivery Room Air 03/15/23 10:00 MDM - Neuro Symptoms/Deficit MDM Narrative Medical decision making narrative: 42-year-old male presenting as a stroke alert. NIH of 1 on arrival. Patient is hypertensive, otherwise vitals are within normal limits. Patient immediately taken to CT scan. 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 CTA with 0% stenoses and no aneurysms. On reeval
[2023-03-13 16:20] LABS: Basophils Absolute Auto 0.1 K/mm3 (0.0-0.1); Basophils Percent Auto 0.6 % (0.2-1.2); Eosinophils Absolute Auto 0.2 K/mm3 (0-0.3); Eosinophils Percent Auto 2.1 % (0-4.4); Hematocrit 53.4 % (42.0-52.0); Hemoglobin 17.5 g/dL (14.0-18.0); Immature Granulocyte Absolute 0.04 K/mm3 (0.00-0.031); Immature Granulocyte Percent A 0.4 % (0-0.5); Lymphocytes Absolute Auto 3.42 K/mm3 (0.9-3.2); Lymphocytes Percent Auto 35.1 % (18.3-44.2); Mean Corpuscular HGB Conc 32.8 g/dl (32-36); Mean Corpuscular Hemoglobin 31.1 pg (26-34); Mean Corpuscular Volume 94.8 fl (80-100); Mean Platelet Volume 12.1 fl (7.4-10.4); Monocytes Absolute Auto 0.6 K/mm3 (0.1-0.6); Monocytes Percent Auto 6.2 % (2.6-8.5); Neutrophils Absolute Auto 5.4 K/mm3 (1.3-6.7); Neutrophils Percent Auto 55.6 % (45.5-73.1); Platelet Count Result 162 k/mm3 (150-375); Red Blood Count 5.63 M/mm3 (4.6-6.20); Red Cell Distribution Width 12.6 % (11.5-14.5); White Blood Count 9.7 K/mm3 (4.5-10.0)
[2023-03-13 16:21] LABS: Estimated CRCL calculation 83 ml/min; Estimated Glomerular Filt Rate 56
[2023-03-13 16:24] LABS: Glucose Point of Care 120 mg/dl (65-105)
[2023-03-13 16:31] LABS: Alanine Aminotransferase 33 U/L (6-50); Albumin Level 4.7 g/dL (3.5-5.1); Alkaline Phosphatase 73 U/L (38-126); Anion Gap 13 mmol/L (8-16); Aspartate Amino Transferase 26 U/L (17-59); Bilirubin,Total 0.6 mg/dL (0.2-1.3); Blood Urea Nitrogen 17 mg/dL (9-20); Calcium 9.9 mg/dL (8.4-10.2); Carbon Dioxide 30 mmol/L (22-30); Chloride 100 mmol/L (98-107); Estimated CRCL calculation 89 ml/min; Estimated Glomerular Filt Rate > 60; Glucose 108 mg/dL (65-110); Potassium 4.7 mmol/L (3.4-5.0); Sodium 143 mmol/L (137-145)
[2023-03-13 16:36] LABS: Prothrombin Time 13.5 Seconds (11.1-14.7)
[2023-03-13 16:37] LABS: Partial Thromboplastin Time 25.8 SECONDS (22.3-36.8)
[2023-03-13 16:42] LABS: Troponin I < 0.012 ng/mL (0.000-0.034)
[2023-03-13 17:25] LABS: Appearance Urine Clear (Clear); Bilirubin Urine Negative (Negative); Blood Urine Negative (Negative); Color Urine Yellow (Yellow); Glucose Urine UA Negative (Negative); Ketones Urine Negative (Negative); Leukocyte Esterase Ur Negative LEU/UL (Negative); Nitrate Urine Negative (Negative); Protein Urine Negative (Negative); Specific Grav Ur 1.031 (1.001-1.035); Urobilinogen Urine 0.2 mg/dL (<2.0); pH Urine 6.5 (5.0-9.0)
[2023-03-13 17:30] LABS: Add Urine Microscopic? NO
[2023-03-13 17:46] LABS: Amphetamine Screen Urine Negative (Negative); Barbiturate Screen Urine Negative (Negative); Benzodiazepines Screen Urine Negative (Negative); Cannabinoid Screen Urine Positive (Negative); Cocaine Screen Urine Negative (Negative); Methadone Screen Urine Negative (Negative); Opiate Screen Urine Negative (Negative); Phencyclidine Screen Urine Negative (Negative)
--- NOTE | 2023-03-13 18:32 | PM.IMHP ---
H&P: HPI History of Present Illness Date/Time: 03/13/23 19:00 Chief Complaint: Left sided numbness, facial droop, and slurred speech. Narrative: This is a pleasant 42-year-old male smoker (currently taking Chantix) with diet-controlled type 2 diabetes mellitus and obstructive sleep apnea on CPAP who presented to the emergency department via private vehicle for evaluation of left sided numbness, facial droop, and slurred speech. The patient provides the following history. His provides additional information, with the patient's permission. He was in his usual state of health when he got up today and he and his went to play slots. Suddenly while sitting at a machine he developed heaviness and numbness in his left arm. He stood up to find his to discuss his symptoms at which time he noticed that the left leg seemed to be a bit numb and heavy as well. reports that his speech was difficult to understand and there was some mild left-sided facial drooping. They drove immediately to the ED and he was sent emergently for CTA of the head and neck which showed no significant intracranial arterial stenosis or findings although a cyst in the left frontal lobe deep white matter was noted. Over the next hour or so his symptoms have started to resolve and he is essentially back to normal at the time my evaluation in the ED. He has never had similar symptoms. He has no history of cardiac dysrhythmia and denies palpitations and sensations of racing or irregular heartbeat. He has lost over 100 lb since being diagnosed with diabetes and he has been able to come off of his medications. He states compliance with his CPAP and tells me he cannot sleep without it. He has never had issues with his blood pressures however he notes that they have been running a bit high today since arrival. He denies headache, vertigo, and vision changes. No recent illnesses. No recent vaccinations. He is not on any hormones. He has been off and on Chantix since the spring and is down to about 4 to 5 cigarettes a day. Review of Systems Review of Systems: Twelve systems were reviewed and are negative except for as per HPI. [facility] Past Medical History Medical History (Updated 03/13/23 @ 22:31 by Veronique Griffith PA-C) Diet-controlled type 2 diabetes mellitus (02/2020) Diverticulitis Obstructive sleep apnea on CPAP Perineal abscess (11/2019) Tobacco abuse Surgical History Surgical History History of appendectomy Family History Family History Grandparent Acute myocardial infarction Diabetes mellitus Hypertension Cerebrovascular accident Social History Social History (Updated 03/13/23 @ 22:29 by Veronique Griffith PA-C) Social History: Surrogate decision maker: Laura Montes, . Code status: Full code. Smoking packs per day: 0.25 Smoking cigarettes per day: 5.0 Years smoked: 20 Smoking pack-years: 5.00 Smoking status: Current every day smoker Tobacco type: cigarettes Second hand tobacco smoke exposure: Yes Alcohol intake: current Drinks per week: 1 Alcohol use details: Rare Substance use: current Substance use type: marijuana Last use: 03/12/2023 Lack of Transportation: No Lack of Food: Never True Current Housing: I Have Housing Concerned About Future Housing: No Difficulty Paying Gas/Electric Bills: No Difficulty Paying for Meds: No Currently Unemployed: No Education: Bachelor's Degree Difficulty w/ Childcare or Family Care: No Additional living arrangements comments: Lives in [place] with his and 2 children. Additional occupation/education comments: Works in IT. Spiritual care concerns: No Meds Home Medications and Allergies Home Medications Medication Instructions Recorded Confirmed Type No Home Medications 03/13/23 03/13/23 History Allergies Allerg
[2023-03-13 21:18] LABS: Glucose Point of Care 169 mg/dl (65-105)
[2023-03-14] VITALS (11 sets, daily range): BP systolic 119–125; BP diastolic 72–81; PULSE 56–65; RESP 14–16; TEMP 36.3–36.6; O2SAT 95–99
[2023-03-14 05:23] LABS: Anion Gap 8 mmol/L (8-16); Blood Urea Nitrogen 19 mg/dL (9-20); Calcium 8.9 mg/dL (8.4-10.2); Carbon Dioxide 27 mmol/L (22-30); Chloride 103 mmol/L (98-107); Cholesterol 156 mg/dL (0-200); Estimated CRCL calculation 96 ml/min; Estimated Glomerular Filt Rate > 60; Glucose 118 mg/dL (65-110); HDL Direct 36 mg/dL; Magnesium 2.2 mg/dL (1.6-2.3); Potassium 3.9 mmol/L (3.4-5.0); Sodium 138 mmol/L (137-145); Triglycerides 136 mg/dL (<150)
[2023-03-14 05:33] LABS: LDL Cholesterol Direct 84 mg/dL
[2023-03-14 08:11] LABS: Glucose Point of Care 124 mg/dl (65-105)
--- NOTE | 2023-03-14 10:40 | WPDNEURCNPN ---
Assessment and Plan Assessment and plan (1) Transient ischemic attack: Code(s): G45.9 - Transient cerebral ischemic attack, unspecified Status: Acute (2) Diet-controlled type 2 diabetes mellitus: Onset Date: 02/2020 Code(s): E11.9 - Type 2 diabetes mellitus without complications Status: Acute (3) Tobacco abuse: Code(s): Z72.0 - Tobacco use Status: Acute (4) Hypertension: Code(s): I10 - Essential (primary) hypertension Status: Acute Plan Dell Montes is a 42 year old male with a history of hypertension, prediabetes, chronic smoking, DAVID who presented for evaluation of left sided numbness, facial droop, and slurrying of the speech. He does have several stroke factors despite his younger age, so obviously TIA is a concern. CTA brain/carotid did not show any evidence of intracranial or extracranial stenosis. Also on the differential is focal seizure, and even an initial demyelinating event. - Obtain MRI brain with and without contrast - If MRI is unrevealing, start daily aspirin and statin - goal LDL is <70 in the setting of TIA/stroke - Surface echocardiogram is pending -- if unrevealing, check hypercoagulability labs given family history of early stroke- PT/PTT, Protein C, Protein S, Antithrombin III, Prothrombin gene mutations, Factor V Leiden, Anticardiolipin antibodies (IgG and IgM), lupus anticoagulant, homocysteine, Lipoprotein A, MTHFR, D-dimer, Factor VIII activity - Counselled on importance of smoking cessation Consult date: 03/14/23 Reason for consult: Transient focal neurologic symptoms HPI: Dell Montes is a 42 year old male with a history of hypertension, prediabetes, chronic smoking, DAVID who presented for evaluation of left sided numbness, facial droop, and slurrying of the speech. Patient was at a slot machine on day of presentation when he suddenly developed heaviness and numbness of his left arm. He stood up and then noticed that his left leg seemed numb and heavy as well. His noted that his speech was difficult to understand (slurred and mumbled) and he had left sided facial droop as well. Patient denies any confusion or loss of awareness. The weakness lasted about 5 minutes, but the sensory loss lasted about 30 minutes. He presented to [facility] ED shortly after the onset of his symptoms. He had a CT head that showed no acute changes. CTA brain/carotid with no significant stenosis or occlusion. The CT did show possible cystic encephalomalacia in the L frontal subcortical region. His NIH score was 1 due to sensory changes. His symptoms self-resolved while in the ED. His blood pressure was in the 150-170s systolic. EKG showed sinus rhythm. He currently smokes 4-5 cigarettes per day. Most recent A1c is 5.8. Patient has not had any additional episodes. He has no history of abnormal clotting. He denies any history of seizures. There is no family history of seizures or clotting issues that he is aware of. His paternal grandfather had a stroke in his 40s. His sister had several miscarriages in her late 30s. Review of Systems Constitutional: Constitutional: Denies chills, Denies fever(s) and Denies weight loss Eyes: Eyes: Denies diplopia and Denies loss of vision ENT: Denies dizziness, Denies hearing loss and Denies tinnitus Cardiovascular: Cardiovascular: Denies chest pain, Denies syncope and Denies dyspnea Respiratory: Respiratory: Denies cough, Denies dyspnea and Denies wheezing Gastrointestinal: Gastrointestinal: Denies abdominal pain, Denies change in bowel habits and Denies vomiting Genitourinary: Genitourinary: Denies urinary incontinence Musculoskeletal: Musculoskeletal: Denies arthralgias and Denies joint swelling Integumentary/Breasts: Skin/Breast: Denies new lesions and Denies rash Neurologic: Reports as per HPI, Denies dizziness, Denies syncope and Denies loss of vision Psychiatric: Psychiatric: Denies anxiety and Denies depression Endocrine:
--- NOTE | 2023-03-14 12:00 | PM.IMPN ---
Progress Note: A&P Assessment and Plan (1) Transient ischemic attack: Code(s): G45.9 - Transient cerebral ischemic attack, unspecified Status: Acute Assessment and Plan: Neurology Dr. Munoz has consulted and MRI with and without are ordered with follow up instructions in case they are negative. MRI pending All symptoms have since resolved. If MRI is negative, Dr. Munoz has specific instructions in his note for next steps to take with regards to medication. ECHO is negative with normal EF and is suspect for a PFO. Additional workup with PT/PTT, protein C, Protein S, Antithrombin III, Prothrombin gene mutations, Factor V Leiden, Anticardiolipin antibodies of IgG and Igm, Lupus anticoagulant, homocysteine, Lipoprotein A, MTHFR, D-dimer and Factor VIII activity are ordered at the request of Dr. Munoz due to family hx of early stroke in Pt's grandfather to assess for other causative factors. Continue neuro checks Smoking cessation stressed to pt. (2) Diet-controlled type 2 diabetes mellitus: Onset Date: 02/2020 Code(s): E11.9 - Type 2 diabetes mellitus without complications Status: Chronic Assessment and Plan: Hgb A1C is 5.8 as of 08/25/22. It has not been elevated higher since 02/19/2020. Continue heart healthy diet. (3) Brain cyst: Code(s): G93.0 - Cerebral cysts Status: Acute Assessment and Plan: See plan for problem #1. Dr. Munoz following. (4) Obstructive sleep apnea on CPAP: Code(s): G47.33 - Obstructive sleep apnea (adult) (pediatric); Z99.89 - Dependence on other enabling machines and devices Status: Chronic Assessment and Plan: Continue CPAP (5) Tobacco abuse: Code(s): Z72.0 - Tobacco use Status: Chronic Assessment and Plan: Continue smoking cessation education and the importance of. Declines offered nicotine patch. Time Spent With Patient Time with patient: 15 - 25 minutes Subjective Date/time seen: 03/14/23 0950 Interval history: This pt was examined at the bedside today in interval assessment since being admitted to the hospital with TIA like symptoms. It was found that he has a Cyst in his frontal lobe. His symptoms fully resolved in the ER and he has remained asymptomatic since. He has been evaluated by Neurology, Dr. Munoz today and an MRI with and without contrast has been ordered with recommendations for what to do if the MRI did not detail an area suspicious for stroke. (Please see Dr. Munoz's note for these recommendations.) Pt has normal VS and no other complaints. Review of Systems Review of Systems: All systems reviewed & are unremarkable except as noted in HPI and below Exam Narrative: General: Well-developed, nontoxic-appearing male sitting up in bed in no acute distress. Weight: 123.4 kg. BMI: 37.9. HEENT: Normocephalic, atraumatic. PERRL, EOMI. Sclera anicteric. Oral mucosa moist. Oropharynx clear. Neck: Supple. No carotid bruits. Respiratory: Lungs are clear to auscultation bilaterally. Cardiovascular: Regular rate and rhythm with S1-S2. No murmur. Gastrointestinal: Abdomen is soft, nontender, and nondistended with positive bowel sounds. Skin: Warm and dry. No rash or lesions on limited exam. Extremities: No cyanosis, clubbing, or edema. Radial and pedal pulses intact. Neurological: Alert and oriented. Cranial nerves 2-12 are grossly intact. Speech is clear. No facial asymmetry. No pronator drift. Normal [id number] and rapid alternating movements. Strength 5/5 in upper and lower extremities. Sensation intact throughout. NIH for me is 0 Psychiatric: Pleasant and cooperative with normal mood and affect. Judgment and insight intact. Objective Data Vital Signs Vital Signs: Vital Signs - 24 hr 03/13/23 16:03 03/13/23 16:38 03/13/23 16:38 Temperature 97.6 F Pulse Rate 75 66 67 Respiratory Rate 16 17 Blood Pressure 178/106 H 156/93 H Pulse Oximetry 96 97
[2023-03-14 12:04] LABS: Glucose Point of Care 116 mg/dl (65-105)
[2023-03-14 13:24] LABS: Partial Thromboplastin Time 24.8 SECONDS (22.3-36.8); Prothrombin Time 13.8 Seconds (11.1-14.7)
[2023-03-14 13:41] LABS: D Dimer 0.38 ug/mL (<0.48)
[2023-03-14 17:08] LABS: Glucose Point of Care 138 mg/dl (65-105)
[2023-03-14 20:42] LABS: Glucose Point of Care 164 mg/dl (65-105)
--- NOTE | 2023-03-14 22:34 | ECHO_ITS ---
Patient Info Name: Dell Montes Age: 42 years : 1980 Gender: Male Ht: 71 in Wt: 273 lbs BSA: 2.54 m2 HR: 56 bpm BP: 120 / 74 mmHg Heart Rhythm: Sinus Rhythm Technical Quality: Good Exam Date: 03/14/2023 9:31 AM Exam Location: Echo Lab Patient Status: Inpatient Admit Date: 03/13/2023 Staff Ordering Physician: Veronique Griffith PA-C Dedicated Truck Driver: Felix Sommer RDCS Attending Provider: Marianela Lutz Referring Physician: Gladis DOZIER; Exam Type: CA echo doppler w bubble study Study Info Indications - TIA Complete two-dimensional, color flow and Doppler transthoracic echocardiogram is performed with agitated saline. Contrast/Agitated Saline Contrast/Ag. Saline: Agitated Saline Amount: 20.00 ml Summary 1. Left ventricular chamber dimension is normal. 2. Left ventricular systolic function is normal, estimated at 65-70%. 3. Right ventricular systolic function is normal. 4. Suspected patent foramen ovale visualized by agitated saline imaging. 5. Bubble study is negative at rest. However, bubble study is positive with Valsalva with a mild right to left shunt, consistent with PFO/ASD. 6. There is trace mitral valve regurgitation. 7. There is trace tricuspid valve regurgitation. Left Ventricle Left ventricular chamber dimension is normal. Left ventricular systolic function is normal, estimated at 65-70%. There is no increased left ventricular wall thickness. Right Ventricle Right ventricular chamber dimension is normal. Right ventricular systolic function is normal. Left Atria Left atrial chamber dimension is normal. Right Atria Right atrial chamber dimension is normal. Atrial Septum Bubble study is negative at rest. However, bubble study is positive with Valsalva with a mild right to left shunt, consistent with PFO/ASD. Suspected patent foramen ovale visualized by agitated saline imaging. Aortic Valve The aortic valve is not well visualized. There is no aortic valve stenosis. There is no aortic valve regurgitation. Pulmonic Valve The pulmonic valve is not well visualized. Mitral Valve There is trace mitral valve regurgitation. Tricuspid Valve There is trace tricuspid valve regurgitation. Pericardium/Pleural The pericardium appears epicardial fat pad. There is no pericardial effusion. Inferior Vena Cava Normal inferior vena cava with >50% collapse upon inspiration consistent with normal right atrial pressure, 3 mmHg. Aorta The aortic root size at the sinus of Valsalva is normal. Left Ventricular Outflow Tract Name Value Normal LVOT 2D LVOT Diameter 2.0 cm LVOT Doppler LVOT Peak Gradient 3 mmHg LVOT Mean Gradient 2 mmHg LVOT VTI 27 cm LVOT VTI/AV VTI Ratio 1.2 LVOT Stroke Volume 83 ml LVOT CO 4.3 l/min LVOT CI 1.7 l/min/m2 Pulmonic Valve Name Value Normal
[2023-03-15] VITALS: PULSE 62
[2023-03-15 04:00] VITALS: PULSE 50
[2023-03-15 04:41] VITALS: BP 118/70; PULSE 62; RESP 12; TEMP 36.6; O2SAT 97
[2023-03-15 08:00] VITALS: PULSE 57
--- NOTE | 2023-03-15 08:56 | PM.DS ---
DS: Admitting Diagnosis Discharge Date 03/15/2023 Admitting Diagnosis TIA, add diet-controlled type 2 diabetes mellitus, brain cyst, DAVID on CPAP, tobacco abuse DS: Discharge Diagnosis Discharge Diagnosis (1) Transient ischemic attack: Code(s): G45.9 - Transient cerebral ischemic attack, unspecified Status: Acute (2) Diet-controlled type 2 diabetes mellitus: Onset Date: 02/2020 Code(s): E11.9 - Type 2 diabetes mellitus without complications Status: Chronic (3) Obstructive sleep apnea on CPAP: Code(s): G47.33 - Obstructive sleep apnea (adult) (pediatric); Z99.89 - Dependence on other enabling machines and devices Status: Chronic (4) Tobacco abuse: Code(s): Z72.0 - Tobacco use Status: Chronic (5) Cryptogenic stroke: Code(s): I63.9 - Cerebral infarction, unspecified Status: Chronic (6) PFO (patent foramen ovale): Code(s): Q21.12 - Patent foramen ovale Status: Acute DS: Summary Hospital Course Reason for hospitalization: Patient admitted for TIA/Stroke workup Hospital Course: This is a 42 year old male patient with history of DAVID on CPAP, Type 2 DM and tobacco abuse who was admitted to the hospital due to abrupt onset left-sided numbness/heaviness and speech disturbance. Immediate workup for stroke revealed concern for a left frontal lobe cyst but no signs of acute hemorrhagic stroke. CTA obtained with 0% stenosis bilateral carotids and no evidence of acute infarct or large vessel thrombosis. Patient was admitted and underwent surface ECHO which did show a PFO that is classified as lower risk due to only mild shunting of bubbles with Valsalva. Neurology saw patient and recommended aspirin and statin upon discharge as well as routine follow-up. Patient reports all symptoms have been relieved and have not recurred. MRI obtained yesterday but not read until this morning shows area of old infarct in left frontal lobe. Patient was educated on the need for follow-up for possible PFO closure due to recurrence of cryptogenic stroke/TIA. He did not wish for inpatient Cardiology consult or transfer for PFO closure procedure at this time. Patient was educated on the need to stop smoking. Medication compliance discussed. Patient had near normal lipid panel so low-dose rosuvastatin started as well as enteric coated aspirin as patient had a adverse affect of aspirin previously with vomiting. Time spent discussing smoking cessation with patient: 3 to 10 minutes Status at Discharge Cognitive/behavioral status at discharge: Awake alert oriented and very pleasant Functional status at discharge: independent ambulation Overall status at discharge: patient is back to baseline Time Spent with Patient Time attestation: Total time spent providing and/or coordinating discharge services: 35 minutes Time spent: Greater than 30 minutes Specific discharge activities: Review imaging reports and findings with patient in depth as well as discussed importance of follow-up with Neurology, primary care and need for referral to Cardiology for PFO closure workup Exam Narrative: General: Well-developed, nontoxic-appearing male sitting upright in no acute distress. HEENT: Normocephalic, atraumatic. PERRL, EOMI. Sclera anicteric. Oral mucosa moist. Oropharynx clear. Neck: Supple. No JVD Respiratory: Lungs are clear to auscultation bilaterally. Cardiovascular: Regular rate and rhythm with S1-S2. No murmur. Gastrointestinal: Abdomen is soft, nontender, and nondistended with positive bowel sounds. Skin: Warm and dry. No rash or lesions on limited exam. Extremities: No cyanosis, clubbing, or edema. Radial and pedal pulses intact. Neurological: Alert and oriented. Cranial nerves 2-12 are grossly intact. Speech is clear. No facial asymmetry. No pronator drift. Normal [id number] and rapid alternating movements. Strength 5/5 in upper and lower extremities. Sensation intact throu
[2023-03-15] MEDS: ASPIRIN 81 MG ENTERIC TABLET PO (11:30)
[2023-03-15] MEDS: ROSUVASTATIN 5 MG TABLET PO (11:30)
[2023-03-15 12:00] VITALS: PULSE 63
[2023-03-16 21:31] LABS: Antithrombin III Activity 121 % normal (80-135)
[2023-03-17 07:20] LABS: Lipoprotein A <10 nmol/L (<75)
[2023-03-17 11:54] LABS: Factor VIII Activity 143 % normal (50-180)
[2023-03-17 21:27] LABS: Homocysteine 12.7 umol/L (<11.4)
[2023-03-19 06:00] LABS: Lupus dRVVT Screen 38 sec (<=45); PTT-LA Screen 29 sec (<=40)
[2023-03-19 06:59] LABS: Anti Cardio Antibody IgM 5.2 MPL-U/mL (<20.0); Anti Cardiolipin Antibody IgA <2.0 APL-U/mL (<20.0); Anti Cardiolipin Antibody IgG <2.0 GPL-U/mL (<20.0)
[2023-03-21 18:23] LABS: Factor V (Leiden) Mutation NEGATIVE
--- NOTE | 2023-03-24 09:15 | PC.NURSE ---
Coagulant test results shown to Wilian Grace APRN
== END 2023-03-15 13:30 | disposition home or self-care (01) ==
LOC: ANHED 16:31 → ANH2MED 20:35 → ANH3MEDSUR 03-17 10:20
PROVIDERS: Physician Assistant; Admitting Provider Internal Medicine; Emergency Provider Emergency Medicine; PCP Family Medicine; Visit Provider Nurse Practitioner Adult Health
DX: G45.9 Transient cerebral ischemic attack, unspecified (principal); G93.0 Cerebral cysts; I10 Essential (primary) hypertension; E11.9 Type 2 diabetes mellitus without complications; G47.33 Obstructive sleep apnea (adult) (pediatric); Z99.89 Dependence on other enabling machines and devices; F51.9 Sleep disorder not due to a substance or known physiological condition, unspecified; Q21.12 Patent foramen ovale; Z86.73 Personal history of transient ischemic attack (TIA), and cerebral infarction without residual deficits; F17.210 Nicotine dependence, cigarettes, uncomplicated; F10.90 Alcohol use, unspecified, uncomplicated; F12.90 Cannabis use, unspecified, uncomplicated; Z83.3 Family history of diabetes mellitus; Z82.3 Family history of stroke; Z79.899 Other long term (current) drug therapy
CPT/HCPCS: 36415; 70450; 70496; 70498; 70553; 71045; 80048; 80053; 80061; 80307; 81003; 81240; 81241; 81291; 82948; 83090; 83695; 83735; 84484; 85025; 85240; 85300; 85303; 85306; 85380; 85610; 85613; 85730; 86147; 93005; 93306; 96375; 99285; A9270; A9577; G0378; Q9967